=== PATIENT | female | born 1970 | race Caucasian/White ===

== ENCOUNTER → 2016-02-20 | Outpatient (CLI) | payer OTHER ==
--- NOTE | 2016-02-20 16:09 | MA ---
Screening Digital Mammogram Clinical Indications: Routine screening. Technique: Standard cephalocaudal and mediolateral oblique projections are obtained. This examinatio n is processed by the [employer] computer aided detection system. Comparison: June 24, 2011. Breast density: C; The breasts are heterogeneously dense, which may obscure small masses. Findings: CAD was reviewed. There are no new masses, new clusters of microcalcifications, or significant axillary lymphadenopathy . Impression: Negative mammogram. BI-RADS 1. Recommendation: Routine screening mammogram is recommended in one year. Dense mammographic pattern limits the sensitivity of mammography in this patient. If there is a clini sadia palpable abnormality, recommend additional imaging with ultrasound if clinically indicated. [facility] will send a result letter to the patient. Negative mammography should not preclude additional workup of a clinically suspicious finding. The patient's information is entered into a reminder system with a target due date for her next mammo gram.
== END ==
LOC: FIMAGING 10:35
DX: Z12.31 Encounter for screening mammogram for malignant neoplasm of breast (principal)
CPT/HCPCS: G0202

== ENCOUNTER 2016-04-03 09:18 | Inpatient (IN) | payer OTHER ==
[~2016-04-03 09:18] MED LIST: BUPIVACAINE/EPI 0.5% 30 ML SDV ONE; PROTAMINE SULFATE 50 MG/5 ML VIAL IVP ONE; SKIN ADHESIVE (DERMABOND) 1 EACH TP ONE; THROMBIN (RECOMBINANT) 5,000 UNIT VIAL TP ONE
[2016-04-03] MEDS ORDERED: LIDOCAINE 1% 5 ML SDV ONE (09:42)
[2016-04-03] MEDS ORDERED: LR 1,000 ML IV ONE (10:18)
[2016-04-03] MEDS ORDERED: LIDOCAINE 1% 5 ML SDV ID PRN (10:18)
[2016-04-03] MEDS ORDERED: GLYCOPYRROLATE 0.2 MG/1 ML VIAL ONE (10:43)
[2016-04-03] MEDS ORDERED: LIDOCAINE 2% 5 ML SDV ONE (10:44)
[2016-04-03] MEDS ORDERED: fentaNYL 100 MCG/2 ML INJ ONE ×2 (10:45→14:57)
[2016-04-03] MEDS ORDERED: PROPOFOL 200 MG/20 ML VIAL ONE (10:45)
[2016-04-03] MEDS ORDERED: MIDAZOLAM 2 MG/2 ML VIAL ONE (10:54)
[2016-04-03] MEDS ORDERED: DEXAMETHASONE 4 MG/ML VIAL ONE (11:45)
[2016-04-03] MEDS ORDERED: SUGAMMADEX SODIUM 200 MG/2 ML VIAL IVP ONE (14:01)
[2016-04-03] MEDS ORDERED: ZOLPIDEM TARTRATE 5 MG TAB PO PRN (14:43)
[2016-04-03] MEDS ORDERED: MAGNESIUM HYDROXIDE 30 ML UDCUP PO PRN (14:43)
[2016-04-03] MEDS ORDERED: ACETAMINOPHEN 325 MG TAB PO PRN (14:43)
[2016-04-03] MEDS: HYDROCODONE/APAP 5/325 TAB PO PRN ×2 (16:51→20:56)
[2016-04-03] MEDS: KETOROLAC 15 MG/1 ML SDV IVP SCH (18:22)
--- NOTE | 2016-04-03 19:10 | GOP ---
DATE OF OPERATION: 04/03/2016 SURGEON: Demond Ross MD CLERK OPERATOR: Jaya Macdonald MD ANESTHESIA: General, Dr. Tirado PREOPERATIVE DIAGNOSIS: Right carotid body tumor. POSTOPERATIVE DIAGNOSIS: Right carotid body tumor. PROCEDURE PERFORMED: Excision of right carotid body tumor. FINDINGS: INDICATIONS: A 45-year-old female with a 3 cm right carotid body tumor, Yair III classification , noted on a recent emergency room CT scan for a possible transient ischemic attack. Her 24-hour ur ine catecholamine workup shows no evidence of overproduction. She is undergoing surgical excision a t this time. Surgical risks and benefits were explained to the patient in detail including, but not limited to bleeding, infection, tumor recurrence, nerve injury, need for a carotid reconstruction, stroke, preoperative genetic profiling was pending as well. All questions were entertained. She de sires to proceed. DESCRIPTION OF PROCEDURE: After general anesthesia was induced, a transverse incision was created t hrough an upper neck skin crease. The platysma muscle was divided. The anterior border of the ster nocleidomastoid muscle was divided. The facial vein was encountered, circumferentially divided allo wing exposure to the carotid bifurcation. The proximal common carotid artery was circumferentially encompassed with a vessel loop. Soft tissues overlying the carotid bifurcation were carefully divid ed. The tumor was noted to be approximately 3.5 cm with semicircumferential involvement of the inte rnal and external carotid artery. Extensive time was spent taking care to preserve the hypoglossal nerve as well as vagus nerve. The distal internal and external carotid arteries were able to be cir cumferentially dissected out and encompassed with vessel loops. The superior thyroid artery was cou rsing directly through the tumor which was sacrificed during the dissection. Having obtained vascul ar control, both proximally and distally, tumor dissection was subsequently entertained. This was t aken at the level of the carotid bifurcation where residual carotid sinus and body of vasculature wa s all divided using electrocautery and sharp dissection. This allowed for the tumor to be released from the surrounding upper neck fibrofatty tissue. The tumor was noted to be nicely encapsulated wi thout extension to suggest malignancy. The patient remained hemodynamically normal throughout this portion of the dissection. Having completed the proximal dissection, the internal and external gregg sofiya were both dissected laterally where there appeared to be soft tissue planes devoid of tumor. T hese tissues were divided again using cautery and sharp dissection, allowing for the arms of the gage or to be folded medially. The remaining dissection was carefully taken off the remaining carotid bi furcation, ultimately allowing for the tumor to be released from the carotid artery intact and this was sent for permanent sectioning. Once satisfactory hemostasis was obtained throughout the neck ca vity, the hypoglossal and vagus nerves were all confirmed intact. Upon completion, the carotid bifu rcation as well as internal and external branches all appeared completely normal and hemostatic. Th e neck was subsequently closed in layers with absorbable suture by Dermabond. The patient was taken to recovery room awake, moving all 4 extremities, in hemodynamically normal condition. /[id number]/MODL
[2016-04-03] MEDS: IBUPROFEN 600 MG TAB PO SCH (20:56)
[2016-04-03] MEDS: ONDANSETRON 4 MG/2 ML VIAL IVP PRN (22:01)
[2016-04-04] MEDS: KETOROLAC 15 MG/1 ML SDV IVP SCH ×3 (01:06→12:47)
[2016-04-04] MEDS: IBUPROFEN 600 MG TAB PO SCH (06:16)
[2016-04-04] MEDS: ONDANSETRON 4 MG/2 ML VIAL IVP PRN (09:39)
--- NOTE | 2016-04-04 10:08 | SOAPPROG ---
SOAP Progress Note Assessment/Plan: Assessment:no problems overnight. nausea only. pain controlled. min ambulation. avss. comfortable. neck flat. neuro intact. 2+ carotid. incision clean. doing well-neuro intact. ambulate. min narcotics. home later today. Plan: 04/04/16 10:06 Objective: Vital Signs Temp Pulse Resp BP Pulse Ox 37.2 C 57 L 14 114/70 98 04/04/16 08:00 04/04/16 08:00 04/04/16 08:00 04/04/16 08:00 04/04/16 08:00 04/03/16 04/04/16 04/05/16 05:59 05:59 05:59 Intake Total 2550 Output Total 10 Balance 2540 ICD10 Worksheet Patient Problems: Problems Problem Status Onset Carotid body paraganglioma Acute - ICD10 Problem Qualifiers (1) Carotid body paraganglioma
[2016-04-04 12:47] VITALS: BP 100/83; PULSE 68; RESP 16; TEMP 98.3; O2SAT 95
== END 2016-04-04 01:40 | disposition home or self-care (01) | DRG 983 ==
LOC: F3E 09:18 → F2W 16:30
PROVIDERS: ADMIT Surgery; ATTEND Surgery
PROC: 0GB70ZZ Excision of Right Carotid Body, Open Approach (ICD-10-PCS; principal; 2016-04-03 10:45)
DX: D35.5 Benign neoplasm of carotid body (principal); G43.909 Migraine, unspecified, not intractable, without status migrainosus
CPT/HCPCS: J1100; J1644; J1885; J2250; J2405; J2704; J2720; J3010

== ENCOUNTER 2016-06-23 05:48 | Observation (INO) | payer OTHER ==
[2016-06-23] MEDS ORDERED: LR 1,000 ML IV ONE (06:22)
[2016-06-23] MEDS ORDERED: LIDOCAINE 1% 5 ML SDV ID PRN (06:22)
[2016-06-23] MEDS ORDERED: BUPIVACAINE/EPI 0.5% 30 ML SDV ONE (06:45)
[2016-06-23] MEDS ORDERED: fentaNYL 100 MCG/2 ML INJ ONE ×4 (06:56→10:54)
[2016-06-23] MEDS ORDERED: PROPOFOL 200 MG/20 ML VIAL ONE ×2 (06:56)
[2016-06-23] MEDS ORDERED: MIDAZOLAM 2 MG/2 ML VIAL ONE (07:11)
[2016-06-23] MEDS ORDERED: LIDOCAINE 2% JELLY 20 ML (UROJECT) ONE ×2 (07:28→07:29)
[2016-06-23] MEDS ORDERED: HYDROmorphONE/DILAUDID 1 MG/ML SYR ONE ×2 (10:17→10:54)
[2016-06-23] MEDS ORDERED: ONDANSETRON 4 MG/2 ML VIAL ONE (11:13)
[2016-06-23] MEDS ORDERED: ZOLPIDEM TARTRATE 5 MG TAB PO PRN (11:22)
[2016-06-23] MEDS ORDERED: MAGNESIUM HYDROXIDE 30 ML UDCUP PO PRN (11:22)
[2016-06-23] MEDS ORDERED: ONDANSETRON 4 MG/2 ML VIAL IVP PRN (11:22)
[2016-06-23] MEDS ORDERED: ACETAMINOPHEN 325 MG TAB PO PRN (11:22)
[2016-06-23] MEDS ORDERED: KETOROLAC 15 MG/1 ML SDV ONE (13:24)
[2016-06-23] MEDS: KETOROLAC 15 MG/1 ML SDV IVP SCH ×3 (14:10→23:52)
[2016-06-23] MEDS: IBUPROFEN 600 MG TAB PO SCH ×2 (14:11→20:16)
--- NOTE | 2016-06-23 15:36 | POSTOPPROG ---
Post Op Note Date of Operation: 06/23/16 Surgeon: Demond Ross Waistline Joiner Overlock: Jaya Macdonald Anesthesia: GET(General Endotracheal) Pre-op Diagnosis: Metastatic Papillary Thyroid Cancer Post-op Diagnosis: Same Procedure: Total thyroidectomy with central LND and fiberoptic laryngoscopy Findings: normal VC Inf/Abcess present in the surg proc area at time of surgery?: No EBL: Minimal Drains: Alvin Garrison Specimen(s): thyroid with nodes
[2016-06-23] MEDS: HYDROCODONE/APAP 5/325 TAB PO PRN ×2 (17:27→23:50)
[2016-06-24] MEDS: KETOROLAC 15 MG/1 ML SDV IVP SCH ×2 (05:42→12:01)
[2016-06-24] MEDS: IBUPROFEN 600 MG TAB PO SCH (05:43)
--- NOTE | 2016-06-24 10:05 | SOAPPROG ---
SOAP Progress Note Assessment/Plan: Assessment:no complaints. min pain. ambulating. no perioral numbness or tingling. AVSS. neck flat. incis clean. DHARMESH serosang. Ca 8. doing very well. drain out. add tums. start synthroid at home. f/u 2 weeks. calcium check prior. Plan: 06/24/16 10:02 Objective: Vital Signs Temp Pulse Resp BP Pulse Ox 36.6 C 74 14 106/72 91 L 06/24/16 07:19 06/24/16 07:19 06/24/16 07:19 06/24/16 07:19 06/24/16 07:19 06/23/16 06/24/16 06/25/16 05:59 05:59 05:59 Intake Total 3300 Output Total 135 Balance 3165 ICD10 Worksheet Patient Problems: Problems Problem Status Onset Carotid body paraganglioma Acute
--- NOTE | 2016-06-24 11:34 | GOP ---
[f rep st] OPERATIVE REPORT DATE OF OPERATION: 06/23/2016 SURGEON: Demond Ross MD BOTTLE WASHING MACHINE OPERATOR: Jaya Macdonald MD ANESTHESIA: General. PREOPERATIVE DIAGNOSIS: Papillary thyroid cancer. POSTOPERATIVE DIAGNOSIS: Papillary thyroid cancer. PROCEDURE PERFORMED: Total thyroidectomy with central lymph node dissection, fiberoptic laryngoscopy. FINDINGS: See below. INDICATIONS: 45-year-old female, status post recent right carotid body excision. An incidental lymph node was sampled showing evidence of metastatic papillary thyroid carcinoma. Subsequent neck ultrasound shows a solitary lesion within the right lobe of the thyroid gland without other areas of suspicious adenopathy. She is undergoing thyroidectomy with lymph node dissection at this time. Risks and benefits were explained of bleeding, infection, tumor recurrence , recurrent laryngeal nerve injury, permanent hypothyroidism, hypoparathyroidism , as well as others. All questions were answered. She desires to proceed. DESCRIPTION OF PROCEDURE: The nares were anesthetized with lidocaine jelly. The fiberoptic laryngoscope was inserted. Normal midline apposition of the vocal folds were noted. With E and A phonation, there was symmetric motion bilaterally. The scope was withdrawn uneventfully. General anesthesia was induced. The neck was preinjected with 0.5% Marcaine with epinephrine. A low collar incision was created. The subplatysmal skin flaps were created to the level of the cricothyroid membrane, sternocleidomastoid musculature and clavicles. The strap muscles were on their midline raphe. Bilateral tom neck cavities were circumferentially dissected out. There was no clinically suspicious adenopathy bilaterally. Bilateral recurrent laryngeal nerves were easily identified coursing into the cricothyroid muscles. These were preserved throughout the remaining bilateral neck dissections. Both upper pole parathyroid glands were identified on the posterior aspect of the thyroid glands at the nerve muscle junction. The lower pole glands were difficult to definitively identify given the small diffuse peppering of lymph nodes. The upper and lower pole vascular pedicles were both circumferentially encompassed. These were divided using a LigaSure device. The middle thyroid vein was also divided with the LigaSure device. The gland was peeled from lateral to medial bilaterally, allowing for it to be removed intact from the neck. The gland was easily separable off the recurrent laryngeal nerve at all points. The bilateral upper pole parathyroid glands were confirmed to be pink and viable upon completion. A suspect right lower pole gland was later noted. The left lower pole parathyroid gland was not seen. The right neck was subsequently dissected out. The carotid sheath was completely dissected out and skeletonized, inclusive of all level 3, 4 and 5 nodes. Also included were portions of level 6. The vagus nerve was preserved throughout the dissection, as was the recurrent laryngeal nerve and the aforementioned parathyroid glands. The central neck nodes were also included with the above dissection. All of these specimens were sent for permanent sectioning. A similar procedure was completed within the left neck. These are all being sent for permanent sectioning. Satisfactory hemostasis was assured throughout bilateral tom-neck cavities. The neck was closed in layers over a 15 round Alvin-Garrison drain. Dermabond was applied and the patient taken to recovery awake uneventfully. /[id number]/MODL MTDD
--- NOTE | 2016-06-24 11:35 | GDS ---
[f rep st] DISCHARGE SUMMARY REASON FOR ADMISSION: Thyroid cancer. HISTORY: The patient is a pleasant 45-year-old female who was initially sent to our office for a carotid body tumor. At the time of the carotid body tumor excision, a lymph node was sent to Pathology and subsequently found to contain focal metastatic carcinoma consistent with papillary thyroid carcinoma. These results were discussed at her postoperative visit. She subsequently underwent ultrasound at Dr. Perry's office and it was decided the patient should undergo total thyroidectomy with central lymph node dissection. HOSPITAL COURSE: The patient was admitted yesterday morning on June 23, 2016, and taken to the operating room and underwent total thyroidectomy with central lymph node dissection by Dr. Ross and Dr. Macdonald. The patient tolerated the procedure well. See full details of the procedure in the full operative note. A drain was placed in the patient's neck at the time of surgery. She was monitored overnight, and as of this morning, she is doing well. She has no perioral numbness or tingling. Her DHARMESH was serosanguineous, and her drain was removed. Calcium this morning was found to be at 8, and Tums will be added upon discharge. She is also due to start Synthroid at home, which will be followed by Dr. Perry's office. She also has tentative plans to proceed with radioactive iodine through Dr. Perry's office as well. DISCHARGE MEDICATIONS: Hydrocodone, acetaminophen 5/325, 1-2 tablets every 4 hours as needed for pain, Tylenol Extra Strength 500 mg every 6 hours as needed for mild pain or fever. She will continue Zofran as needed for nausea and continue ibuprofen 600 mg every 8 hours as needed for pain and Tums 500 mg 2 tablets twice daily. DISCHARGE INSTRUCTIONS: Full written and verbal discharge instructions will be reviewed with the patient. She will follow up with Dr. Ross in 2 weeks. She will have a calcium level checked prior to her followup visit. She will continue the Tums twice daily with plans to stop at 24-48 hours before her calcium to be checked. The patient may shower. /[id number]/MODL MTDD
[2016-06-24 11:57] VITALS: O2SAT 90
[2016-06-24 12:12] VITALS: BP 115/80; PULSE 85; RESP 18; TEMP 97.8
== END 2016-06-24 12:44 | disposition home or self-care (01) ==
LOC: INTOOBSV 05:48 → F3N 05:48 → F2W 13:55
PROVIDERS: ADMIT Surgery; ATTEND Surgery
DX: C73 Malignant neoplasm of thyroid gland (principal); D36.0 Benign neoplasm of lymph nodes; G43.909 Migraine, unspecified, not intractable, without status migrainosus; R73.03 Prediabetes; Z80.51 Family history of malignant neoplasm of kidney
CPT/HCPCS: 60252; G0378; J1170; J1885; J2250; J2405; J2704; J3010

== ENCOUNTER 2016-07-19 22:11 | Emergency (ER) | payer OTHER ==
[2016-07-19 22:18] VITALS: BP 148/91; PULSE 114; RESP 18; TEMP 97.9; O2SAT 97
[2016-07-19] MEDS ORDERED: IBUPROFEN 600 MG TAB PO ONE ×2 (22:33→22:42)
--- NOTE | 2016-07-19 22:37 | EDPHY ---
H & P Stated Complaint: left ankle injury Time Seen by Provider: 07/19/16 22:26 HPI/ROS: CHIEF COMPLAINT: Left lateral ankle pain HISTORY OF PRESENT ILLNESS: 45-year-old female arrives via private vehicle after she was hiking, rolled her foot and impacted a rock, did not fall from height. She has been unable to walk. Bystanders had to carry her out. No proximal distal pain or injury. Pain reproducible with range of motion and palpation PHYSICAL EXAM (Prior to examination, patient consented to physical exam, hands were washed and my usual and customary physical exam procedures followed) 1) GENERAL: Well-developed, well-nourished, alert and oriented. Appears to be in no acute distress. 2) HEAD: Normocephalic 3) HEENT: Pupils equal, round, reactive to light bilaterally. 4) LUNGS: Breathing comfortably. 5) MUSCULOSKELETAL: Abrasion and soft tissue swelling to the lateral malleolus. proximal tibia and fibula nontender .5th MT nontender negative Truong test, compartments soft 6) SKIN: Abrasion to the lateral malleolus 7) VASCULAR: DP,PT pulses and cap refill present and brisk DIFFERENTIAL DIAGNOSIS: in no particular order including but not limited to fracture, sprain, compartment syndrome Xray of the left ankle interpreted by myself: no definitive acute osseous abnormality Procedure: Crutches indications for crutch use discussed with patient. Patient fitted for crutches by ER staff. Observed ambulating with crutches. I think the patient has the capacity to safely use crutches. Usual and customary crutch walking precautions provided Procedure: Splint A [place] boot splint was applied by ER organic extractions technician. After application of the splint I returned and re-examined the patient. The splint was adequately immobilizing the joint and distal to the splint the patient's circulation and sensation were intact. Patient shows no signs of compartment syndrome. Was given orthopedic precautions. - Personal History LMP (Females 10-55): Now Current Tetanus Diphtheria and Acellular Pertussis (TDAP): Yes - Medical/Surgical History Hx Asthma: No Hx Chronic Respiratory Disease: No Hx Diabetes: No Hx Cardiac Disease: No Hx Renal Disease: No Hx Cirrhosis: No Hx Alcoholism: No Hx HIV/AIDS: No Hx Splenectomy or Spleen Trauma: No Other PMH: thyroid CA, thyroidectomy - Social History Smoking Status: Former smoker Constitutional: Initial Vital Signs Temperature (C) 36.6 C 07/19/16 22:14 Heart Rate 114 H 07/19/16 22:14 Respiratory Rate 18 07/19/16 22:14 Blood Pressure 148/91 H 07/19/16 22:14 O2 Sat (%) 97 07/19/16 22:14 O2 Delivery Mode Room Air Allergies/Adverse Reactions: No Known Allergies Allergy (Verified 06/10/16 15:32) Home Medications: Medication Instructions Recorded Thyroid Medication 07/19/16 Departure - Departure Disposition: Home, Routine, Self-Care Clinical Impression: Left ankle sprain Qualifiers: Encounter type: initial encounter Involved ligament of ankle: unspecified ligament Qualified Code(s): S93.402A - Sprain of unspecified ligament of left ankle, initial encounter Condition: Good Instructions: Ankle Sprain (ED) Additional Instructions: Return to the ER immediately if you experience discoloration, have worsening pain, numbness, tingling, or any other symptoms that concern you. If you received x-rays in the emergency department today, be advised, that ligamentous , tendon, muscular, and other non-bony injury cannot be fully ruled out. Try to keep your affected extremity elevated above the level of your chest, and keep cold packs on the affected area, for the next 48 hours. Referrals: Tanvir Pink MD [Medical Doctor] - 1-2 days without fail
== END 2016-07-19 23:07 | disposition home or self-care (01) ==
DX: S93.402A Sprain of unspecified ligament of left ankle, initial encounter (principal); Z85.850 Personal history of malignant neoplasm of thyroid; Z87.891 Personal history of nicotine dependence; X58.XXXA Exposure to other specified factors, initial encounter; Y99.8 Other external cause status; Y93.01 Activity, walking, marching and hiking
CPT/HCPCS: L4386

== ENCOUNTER → 2017-04-22 | Outpatient (CLI) | payer OTHER | LOC: BMCIMAGING 15:02 | PROVIDERS: ATTEND Internal Medicine Endocrinology, Diabetes & Metabolism | DX: Z08 Encounter for follow-up examination after completed treatment for malignant neoplasm (principal); Z85.850 Personal history of malignant neoplasm of thyroid; R59.9 Enlarged lymph nodes, unspecified | CPT/HCPCS: 76536-PO ==

== ENCOUNTER → 2017-05-25 | Outpatient (CLI) | payer OTHER | LOC: FIMAGING 15:55 | PROVIDERS: ATTEND Physician Assistant | DX: Z12.31 Encounter for screening mammogram for malignant neoplasm of breast (principal) ==

== ENCOUNTER → 2018-04-21 | Outpatient (CLI) | payer OTHER | LOC: BMCIMAGING 09:52 | PROVIDERS: ATTEND Physician Assistant | DX: R92.8 Other abnormal and inconclusive findings on diagnostic imaging of breast (principal); Z85.850 Personal history of malignant neoplasm of thyroid ==